=== PATIENT | male | born 1960 | race Caucasian/White ===

== ENCOUNTER → 2023-11-17 | Day surgery (SDC) | payer OTHER ==
[~2023-11-17] MED LIST: Ketamine 200 MG/20 ML MDV ONE; Lactated Ringers 1,000 ML IV SCH; Propofol 200 MG/20 ML SDV ONE; fentaNYL 50 MCG/ML SDV ONE
== END ==
LOC: CC.SDS 08:10
PROVIDERS: ATTEND Family Medicine
DX: Z12.11 Encounter for screening for malignant neoplasm of colon (principal); D12.0 Benign neoplasm of cecum; K63.5 Polyp of colon; I10 Essential (primary) hypertension; J45.990 Exercise induced bronchospasm; E78.00 Pure hypercholesterolemia, unspecified; H61.23 Impacted cerumen, bilateral
CPT/HCPCS: 00811; J2704; J3010; J3490